=== PATIENT | female | born 1950 | race African-American/Black ===

== ENCOUNTER 2018-04-14 10:19 | Outpatient (CLI) | payer MEDICARE, MEDICAID ==
[~2018-04-14] VITALS: Ht 170.2 cm; Wt 78.5 kg
[2018-04-14] MEDS ORDERED: CALCIUM500 M2 PO (14:03)
[2018-04-14] MEDS ORDERED: BP MED (14:03)
[2018-04-14 14:05] VITALS: BP 141/95
--- NOTE | 2018-04-15 23:00 | Consultation ---
DATE OF CONSULTATION: 04/15/2018 CHIEF COMPLAINT: Screening colonoscopy evaluation and chronic GERD. HISTORY OF PRESENT ILLNESS: The patient is a very pleasant 67-year-old female, patient of Dr. Adrian Singh, referred to us for evaluation for screening colonoscopy and evaluation of chronic GERD. PAST MEDICAL HISTORY: Back pain and hypertension. PAST SURGICAL HISTORY: None. MEDICATIONS: She is taking medication for high blood pressure. FAMILY HISTORY: No family history of malignancies. SOCIAL HISTORY: The patient socially drinks alcohol. Denies any tobacco or IV drug abuse. ALLERGIES: No known drug allergies. REVIEW OF SYSTEMS: A 10-point review of systems was performed and pertinent positives in HPI. PHYSICAL EXAMINATION: VITAL SIGNS: Temperature 98.7, blood pressure 141/95, pulse is 96. HEENT: Normocephalic and atraumatic. No scleral icterus. NECK: Supple. No evidence of obvious adenopathy. CARDIOVASCULAR: Regular rate and rhythm. Plus S1 and S2. No obvious murmur. LUNGS: Clear to auscultation bilaterally. ABDOMEN: Positive bowel sounds. Soft, nontender. No rebound. No guarding. No peritoneal sign. EXTREMITIES: No cyanosis, no clubbing, and no edema. ASSESSMENT AND PLAN: The patient is a 67-year-old female who was referred to us for evaluation of screening colonoscopy evaluation and also she is complaining of chronic GERD, not responding to [id number] PPI. I discussed the procedure for the patient endoscopy and colonoscopy. Her son was also in the room. She was given the prep instruction and was scheduled for outpatient endoscopy and colonoscopy. I want to thank, Dr. Adrian Singh, for this kind referral. Gregorio Kelly M.D. DR: Pavithra JOB#: [id number] CC: Adrian Singh M.D.
[2018-04-16] MEDS ORDERED: RELAFEN500 MG ORAL (12:25)
[2018-04-16] MEDS ORDERED: SPIRONOLACTONE25 MG ORAL (12:25)
[2018-04-16] MEDS ORDERED: OYSTER SHELL C500 MG PO (12:25)
== END 2018-04-14 10:49 | disposition home or self-care (01) ==
LOC: PAN 10:19
DX: K21.9 Gastro-esophageal reflux disease without esophagitis (principal); M54.9 Dorsalgia, unspecified; I10 Essential (primary) hypertension
CPT/HCPCS: 99202

== ENCOUNTER 2018-04-17 08:11 | Day surgery (SDC) | payer MEDICARE, MEDICAID ==
[2018-04-17] VITALS (9 sets, daily range): BP systolic 141–165; BP diastolic 74–107
[~2018-04-17] VITALS: Ht 170.2 cm; Wt 78.5 kg
[~2018-04-17 08:11] MED LIST: BP MED; CALCIUM500 M2 PO; OYSTER SHELL C500 MG PO; RELAFEN500 MG ORAL; SPIRONOLACTONE25 MG ORAL
[2018-04-17] MEDS ORDERED: Lidocaine 1% MPF 10mg/ml 5ml ONE (10:00)
[2018-04-17] MEDS ORDERED: Esmolol 100mg/10ml Inj ONE (10:00)
[2018-04-17] MEDS ORDERED: Propofol 200mg/20ml IV ONE (10:00)
--- NOTE | 2018-04-17 10:16 | Anethesia Preoperative Eval ---
Anesthesia Pre-op PMH/ROS General Date of Evaluation: Apr 17, 2018 Time of Evaluation: 10:05 Anesthesiologist: Lillian Goncalves CRNA ASA Score: ASA 3 Mallampati Score Class I : Soft palate, uvula, fauces, pillars visible Class II: Soft palate, uvula, fauces visible Class III: Soft palate, base of uvula visible Class IV: Only hard plate visible Mallampati Classification: Class II Surgeon: Robin Diagnosis: abdominal pain, colon screening Surgical Procedure: EGD diagnsotic, colon screening Anesthesia History: none Family History: no anesthesia problems Allergies: Coded Allergies: PENICILLINS (Verified Allergy, Intermediate, 04/17/18) HIVES,SKIN RASH-MODERATE TO SEVERE Medications: see eMAR Patient NPO?: Yes NPO Date: Apr 17, 2018 NPO Time: 00:00 Past Medical History Cardiovascular: Reports: HTN; Denies: CAD, MS, valve dz, arrhythmia, other Pulmonary: Denies: asthma, COPD, NOMI, other Neurologic/Psychiatric: Denies: dementia, CVA, depression/anxiety, TIA, other Endocrine: Denies: DM, hypothyroidism, steroids, other HEENT: Denies: cataract (L), cataract (R), glaucoma, [place] (L), [place] (R), other Hematology/Immune: Denies: anemia, DVT, bleeding disorder, other Musculoskeletal/Integumentary: Reports: OA, other - chronic lower back pain; Denies: RA, DJD, DDD, edema Other: obesity PMH Narrative: as above PSxH Narrative: none Anesthesia Pre-op Phys. Exam Physician Exam Last Vital Signs Date Time Temp Pulse Resp B/P (MAP) Pulse Ox O2 Delivery O2 Flow Rate FiO2 04/17/18 09:29 97.4 81 20 150/88 98 Room Air Constitutional: NAD, other - obese Neurologic: CN 2-12 intact Cardiovascular: RRR Respiratory: CTA Gastrointestinal: S/NT/ND Airway Exam Mallampati Score: Class III MO: full Neck: FROM, thick neck TMD: > 3 FB ROM: full Teeth: intact Dentures: upper, lower Anesthesia Pre-op A/P Studies Pre-op Studies: EKG - SR with PAC Risk Assessment & Plan Assessment: ASA 3, ok to proceed Plan: MAC Status Change Before Surgery: No Pre-Antibiotics Given Within 1 Hr of Incision: No IvannaLillian SAMPLE STITCHER Apr 17, 2018 10:16
--- NOTE | 2018-04-17 10:18 | Pre-Procedure Note/Attestation ---
Pre-Procedure Note/Attestation Complete Prior to Procedure Planned Procedure: not applicable Procedure Narrative: esophagogastroduodenoscopy and colonoscopy Indications for Procedure Pre-Operative Diagnosis: screening colonoscopy, GERD Attestation I attest that I discussed the nature of the procedure; its benefits; risks and complications; and alternatives (and the risks and benefits of such alternatives ), prior to the procedure, with the patient (or the patient's legal retail representative). I attest that, if there was a reasonable possibility of needing a blood transfusion, the patient (or the patient's legal retail representative) was given the [facility] standardized written summary, pursuant to the [place] Blood Safety Act ([place] Health and Safety Code # 1645, as amended). I attest that I re-evaluated the patient just prior to the surgery and that there has been no change in the patient's H&P, except as documented below: Gregorio Kelly MD Apr 17, 2018 10:18
--- NOTE | 2018-04-17 10:19 | Short Stay Surgery H&P ---
History of Present Illness History of Present Illness Chief Complaint see recent office note HPI Jossy Bryson is a 67 year old female who was admitted on for Abdominal Pain,Colon Screening Patient History Allergies: Coded Allergies: PENICILLINS (Verified Allergy, Intermediate, 04/17/18) HIVES,SKIN RASH-MODERATE TO SEVERE Medication History Scheduled Calcium Carbonate (Oyster Shell Calcium), 125 MG PO DAILY, (Reported) Spironolactone* (Aldactone*), 25 MG ORAL DAILY, (Reported) Miscellaneous Medications Nabumetone (Nabumetone), 750 MG ORAL, (Reported) Physical Exam Vital Signs Last Vital Signs Date Time Temp Pulse Resp B/P (MAP) Pulse Ox O2 Delivery O2 Flow Rate FiO2 04/17/18 09:29 97.4 81 20 150/88 98 Room Air Plan Attestation Are the patient's medical conditions optimized for surgery? Gregorio Kelly MD Apr 17, 2018 10:19
--- NOTE | 2018-04-17 11:06 | Endoscopy Procedure Note ---
Endoscopy Procedure Note General Indication for Procedure: screening colon, GERD Procedures Performed: EGD, colonoscopy Operative Findings/Diagnosis: gastritis, diverticulosis Specimen: yes Pt Tolerated Procedure Well: Yes Estimated Blood Loss: none Anesthesia Anesthesiologist: estevan Anesthesia: MAC Inserted Devices Implant(s) used?: No Quality Quality of Bowel Preparation: Fair Did scope reach the cecum?: Yes Was there any complications?: No GI Core Measures 50 yrs or older w/o bx or poly: No 10yrs. F/U not recommended: Yes If not recommended, why?: Above average risk 10 yrs. F/U needed: Yes 18 years or older w/prev. colo: No Gregorio Kelly MD Apr 17, 2018 11:05
--- NOTE | 2018-04-17 11:21 | Immediate Post-Op Evaluation ---
Immediate Post-Op Evalulation Immediate Post-Op Evalulation Procedure: EGD and colonoscopy diagnostic Date of Evaluation: Apr 17, 2018 Time of Evaluation: 11:11 IV Fluids: 0.9 NS 200 ml Blood Pressure Systolic: 160 Blood Pressure Diastolic: 107 Pulse Rate: 73 Respiratory Rate: 26 O2 Sat by Pulse Oximetry: 100 Temperature (Fahrenheit): 98.4 Pain Score (1-10): 0 Nausea: No Vomiting: No Patient Status: awake, reacts, patent Hydration Status: adequate Given Within 1 Hr of Incision: Lillian Jo CRNA Apr 17, 2018 11:21
--- NOTE | 2018-04-17 14:23 | 48 Hour Post Anesthesia Eval ---
Post Anesthesia Evaluation Procedure: EGD and colonoscopy diagnostic Date of Evaluation: Apr 17, 2018 Time of Evaluation: 14:22 Blood Pressure Systolic: 141 0: 83 Pulse Rate: 86 Respiratory Rate: 20 Temperature (Fahrenheit): 97.6 O2 Sat by Pulse Oximetry: 98 Airway: patent Nausea: No Vomiting: No Pain Intensity: 0 Hydration Status: adequate Cardiopulmonary Status: stable Mental Status/LOC: patient returned to baseline Follow-up Care/Observations: per GI Post-Anesthesia Complications: none Follow-up care needed: ready to discharge Lillian Goncalves CRNA Apr 17, 2018 14:23
--- NOTE | 2018-04-17 17:00 | Procedure Note ---
DATE OF PROCEDURE: 04/17/2018 SURGEON: Gregorio Kelly M.D. PROCEDURE: Upper endoscopy with biopsy and colonoscopy. ANESTHESIA: Per Lillian JOSÉ. INSTRUMENT: Olympus adult flexible upper endoscope and colonoscope. INDICATION: 1. Screening colonoscopy evaluation. 2. Chronic GERD. REASON FOR PROCEDURE: The procedure, risks, benefits, and possible consequences, including hemorrhage, aspiration, perforation and infection, and alternative treatments, were explained to the patient/legal guardian by Dr. Gregorio Kelly and the patient/legal guardian understood and accepted these risks. PROCEDURE IN DETAIL: After informed consent was obtained and the patient was adequately sedated, Olympus upper endoscope was advanced from mouth into the second portion of duodenum and retroflexion was performed in the stomach. The patient had evidence of gastric polyp versus nodule in the antrum of the stomach, looking like source, looks like it may be a colonic-polyp looking. Body was located in the antrum of the stomach. This polyp was biopsied. The patient also evidence of diffuse gastritis. Random biopsy from antrum and body was obtained to rule out H. pylori infection. At this time, the upper endoscope was retrieved and the patient was turned over for colonoscopy. First, rectal exam was performed, which was positive for internal hemorrhoids. Then, the scope was advanced from the rectum into the cecum and then subsequently into terminal ileum. Quality of prep was fair. I would say given this prep about 10 to 15% of the colonic mucosa was not fully examined given there was some semi solid stool throughout the colon. The patient had some scattered diverticulosis without any diverticulitis. Retroflexion of rectum showed evidence of internal hemorrhoids. SUMMARY OF FINDINGS: 1. Gastric polyp versus nodule, status post biopsy. 2. Gastritis, status post biopsy. 3. Fair colonic prep. 4. Diverticulosis. 5. Internal hemorrhoids. RECOMMENDATIONS: Follow up biopsy results and treat accordingly. If this nodule in the antrum shows evidence of any adenomatous changes, the patient needs repeat endoscopy and polypectomy. We will follow and decide. In terms of colonoscopy, the patient would need a repeat colonoscopy given this prep at least in 5 years. I want to thank, Dr. Adrian Singh, for this kind referral. Gregorio Davian Kelly DR: Pavithra JOB#: [id number] CC: Adrian Singh M.D.
== END 2018-04-17 13:15 | disposition home or self-care (01) ==
LOC: GAS 08:11
DX: Z12.11 Encounter for screening for malignant neoplasm of colon (principal); K57.30 Diverticulosis of large intestine without perforation or abscess without bleeding; K64.8 Other hemorrhoids; K29.50 Unspecified chronic gastritis without bleeding; K31.9 Disease of stomach and duodenum, unspecified; I10 Essential (primary) hypertension; M19.90 Unspecified osteoarthritis, unspecified site; G89.29 Other chronic pain; E66.9 Obesity, unspecified
CPT/HCPCS: 43239; 93005; G0121; J0360; J2704; 94003; 94150

== ENCOUNTER 2018-05-12 09:39 | Outpatient (CLI) | payer MEDICARE, MEDICAID ==
[2018-05-12 10:01] VITALS: BP 144/96
--- NOTE | 2018-05-12 14:31 | General Progress Note ---
Assessment/Plan Problem List: (1) Gastritis ICD Codes: K29.70 - Gastritis, unspecified, without bleeding SNOMED: 7210557 (2) Diverticulosis ICD Codes: K57.90 - Diverticulosis of intestine, part unspecified, without perforation or abscess without bleeding SNOMED: 917371888 (3) Hemorrhoids ICD Codes: K64.9 - Unspecified hemorrhoids SNOMED: 04738026 Assessment/Plan repeat colonoscopy in5 years Subjective ROS Limited/Unobtainable: Yes Allergies: Coded Allergies: PENICILLINS (Verified Allergy, Intermediate, 04/17/18) HIVES,SKIN RASH-MODERATE TO SEVERE Objective Last 24 Hour Vital Signs Date Time Temp Pulse Resp B/P (MAP) Pulse Ox O2 Delivery O2 Flow Rate FiO2 05/12/18 10:01 98.3 81 16 144/96 98 General Appearance: alert EENT: normal ENT inspection Neck: supple Cardiovascular: normal rate Respiratory/Chest: decreased breath sounds Abdomen: normal bowel sounds, non tender, soft Extremities: non-tender Gregorio Kelly MD May 12, 2018 14:31
== END 2018-05-12 11:39 | disposition home or self-care (01) ==
LOC: PAN 09:39
DX: K29.70 Gastritis, unspecified, without bleeding (principal); K57.90 Diverticulosis of intestine, part unspecified, without perforation or abscess without bleeding; K64.9 Unspecified hemorrhoids; Z88.0 Allergy status to penicillin
CPT/HCPCS: G0463